=== PATIENT | female | born 1955 | race Caucasian/White ===

== ENCOUNTER 2018-01-25 12:08 | Observation (INO) | payer OTHER ==
[2018-01-25] MEDS ORDERED: TYLENOL 325 MG PO PRN (12:24)
[2018-01-25] MEDS ORDERED: Nicoderm CQ 21 MG TOP SCH (12:30)
--- NOTE | 2018-01-25 12:30 | PCM.HP.ADD ---
Addendum to History & Physical - History & Physical Addendum Addendum to History & Physical: This certifies that the History & Physical in the electronic chart reflects the current health status of the patient. If there are changes in the H&P these changes/exceptions are listed as follows.
--- NOTE | 2018-01-25 13:04 | XRAY ---
Indication: Cough 3 weeks. No fever. Comparison: None PA/lateral chest hyperinflated and clear. Heart and mediastinal structures within normal limits. Bony thorax intact with minimal degenerative changes. Impression: Nonacute hyperinflated chest.
[2018-01-25] MEDS: Sodium Chloride 0.9% 1000 ML 1,000 ML IV SCH (13:21)
[2018-01-25] MEDS: ROCEPHIN 1 Gm-D5w 50 ml Bag** 1 G/50 ML IVPB IV SCH (13:25)
[2018-01-25 13:56] LABS: BASOPHIL % 0.2 % (0.0-0.4); Basophil (Absolute #) 0.02 (0-0.4); Eosinophil % 0.6 % (0.00-5.0); Eosinophil (Absolute #) 0.06 (0-0.5); Granulocyte Absolute (ANC) 6.77 (1.4-6.9); Granulocytes % 63.7 % (36.0-66.0); Hematocrit 46.6 % (35-47); Hemoglobin 16.5 gm/dl (12.0-16.0); Lymphocyte (Absolute #) 2.69 (1.0-4.6); Lymphocytes % 25.3 % (24.0-44.0); Mean Cell Volume 93.8 fl (78-100); Mean Corpuscular Hgb Concent. 35.4 g/dl (32-36); Mean Platelet Volume 11.2 fl (6-9.5); Monocyte (Absolute #) 1.08 (0.0-1.3); Monocytes % 10.2 % (0.0-12.0); Platelet Count 210 K/mm3 (150-450); Red Blood Count 4.97 M/mm3 (4.1-5.4); White Blood Count 10.6 K/mm3 (4.0-10.5)
[2018-01-25 14:01] LABS: Mean Corpuscular Hemoglobin 33.1 pg (26-32)
[2018-01-25 14:28] LABS: ALBUMIN 4.1 g/dL (3.5-5.0); ALKALINE PHOSPHATASE 129 U/L (38-126); ANION GAP 14.4 MEQ/L (5-15); BLOOD UREA NITROGEN 13 mg/dL (7-17); CHLORIDE 106 mmol/L (98-107); Calcium 9.7 mg/dL (8.4-10.2); Carbon Dioxide 25 mmol/L (22-30); Creatinine 1 0.54 mg/dL (0.52-1.04); Glucose 97 mg/dL (74-106); Potassium 3.9 mmol/L (3.5-5.1); SGOT/AST 44 U/L (14-36); SGPT/ALT 39 U/L (0-35); SODIUM 141 mmol/L (137-145); Total Protein 7.4 g/dL (6.3-8.2)
[2018-01-25] MEDS: Zithromax 500 MG/ 250 ML NaCl Premix 500 MG/250 ML IVPB IV SCH (14:45)
[2018-01-25] MEDS ORDERED: Nicoderm CQ 21 MG TOP PRN (14:57)
[2018-01-25] MEDS: DUONEB 0.5-3 MG/3 ml Neb IH SCH ×2 (15:25→19:51)
[2018-01-25] MEDS: Acidophilus TABLET PO SCH (16:04)
[2018-01-25] MEDS: PROPRANOLOL HCL PO SCH (16:04)
[2018-01-25] MEDS: VITA-BEE WITH C PO SCH (16:05)
[2018-01-26] MEDS: Sodium Chloride 0.9% 1000 ML 1,000 ML IV SCH ×3 (00:53→22:25)
[2018-01-26] MEDS: DUONEB 0.5-3 MG/3 ml Neb IH SCH ×4 (01:06→20:45)
--- NOTE | 2018-01-26 09:16 | PCM.NOTE ---
Date and Time: 01/26/18913 Subjective Assessment: doing care - Review of Systems Constitutional: No Fever, No Chills Eyes: No Symptoms Ears, Nose, & Throat: No Symptoms Respiratory: No Cough, No Short Of Breath Cardiac: No Chest Pain, No Edema, No Syncope Abdominal/Gastrointestinal: No Abdominal Pain, No Nausea, No Vomiting, No Diarrhea Genitourinary Symptoms: No Dysuria Musculoskeletal: No Back Pain, No Neck Pain Skin: No Rash Neurological: No Dizziness, No Focal Weakness, No Sensory Changes Psychological: No Symptoms Endocrine: No Symptoms Hematologic/Lymphatic: No Symptoms Immunological/Allergic: No Symptoms Objective Exam General Appearance: no apparent distress, alert Neurologic Exam: alert, oriented x 3, cooperative, normal mood/affect, nml cerebellar function, sensation nml, No motor deficits Skin Exam: normal color, warm, dry Eye Exam: PERRL, EOMI, eyes nml inspection Ears, Nose, Throat Exam: normal ENT inspection, pharynx normal, moist mucous membranes Neck Exam: normal inspection, non-tender, supple, full range of motion Respiratory Exam: normal breath sounds, lungs clear, No respiratory distress Cardiovascular Exam: regular rate/rhythm, normal heart sounds Gastrointestinal/Abdomen Exam: soft, No tenderness, No mass Extremity Exam: normal inspection, normal range of motion Back Exam: normal inspection, normal range of motion, No CVA tenderness, No vertebral tenderness Pelvic Exam: deferred Rectal Exam: deferred OBJECTIVE DATA Vital Signs: Vital Signs - 24 hr Temp Pulse Resp BP Pulse Ox 01/26/18 08:00 18 01/26/18 07:19 98.8 F 68 18 116/58 95 01/26/18 07:00 67 16 97 01/26/18 04:00 99.5 F 69 17 111/58 95 01/26/18 01:00 61 18 96 01/26/18 00:00 99.3 F 71 16 105/58 97 01/25/18 20:00 16 01/25/18 19:52 60 18 95 01/25/18 19:41 98.9 F 64 19 126/67 95 01/25/18 16:00 99.0 F 77 20 114/64 96 01/25/18 13:00 77 16 96 01/25/18 12:36 98.4 F 68 144/67 01/25/18 12:35 98.4 F 68 22 144/67 98 01/25/18 12:33 98.4 F 68 98 01/25/18 12:17 98.4 F 68 98 Pain Assessment - Last Documented Pain Intensity 0 Pain Scale Used 0-10 Pain Scale,FLACC Intake and Output: Intake & Output 01/23/18 01/24/18 01/25/18 01/26/18 11:59 11:59 11:59 11:59 Intake Total 1180 Output Total 1999 Balance -820 Weight 52.9 kg Lab Results: Lab Results-Last 24 Hours 01/25/18 01/25/18 Range/Units 12:24 13:50 WBC 10.6 H (4.0-10.5) K/mm3 RBC 4.97 (4.1-5.4) M/mm3 Hgb 16.5 H (12.0-16.0) gm/dl Hct 46.6 (35-47) % MCV 93.8 (78-100) fl MCH 33.1 H (26-32) pg MCHC 35.4 (32-36) g/dl RDW 13.0 (11.5-14.0) % Plt Count 210 (150-450) K/mm3 MPV 11.2 H (6-9.5) fl Gran % 63.7 (36.0-66.0) % Eos # (Auto) 0.06 (0-0.5) Absolute Lymphs (auto) 2.69 (1.0-4.6) Absolute Monos (auto) 1.08 (0.0-1.3) Lymphocytes % 25.3 (24.0-44.0) % Monocytes % 10.2 (0.0-12.0) % Eosinophils % 0.6 (0.00-5.0) % Basophils % 0.2 (0.0-0.4) % Absolute Granulocytes 6.77 (1.4-6.9) Basophils # 0.02 (0-0.4) Sodium 141 (137-145) mmol/L Potassium 3.9 (3.5-5.1) mmol/L Chloride 106 (98-107) mmol/L Carbon Dioxide 25 (22-30) mmol/L Anion Gap 14.4 (5-15) MEQ/L BUN 13 (7-17) mg/dL Creatinine 0.54 (0.52-1.04) mg/dL Estimated GFR > 60.0 ML/MIN Glucose 97 (74-106) mg/dL Calcium 9.7 (8.4-10.2) mg/dL Total Bilirubin 0.70 (0.2-1.3) mg/dL AST 44 H (14-36) U/L ALT 39 H (0-35) U/L Alkaline Phosphatase 129 H (38-126) U/L Serum Total Protein 7.4 (6.3-8.2) g/dL Albumin 4.1 (3.5-5.0) g/dL Radiology Exams: Radiology Procedures Category Date Time Status CHEST 2 VIEWS (PA AND LAT) Stat Exams 01/25/18 12:52 Completed CHEST W/WO CONTRAST [CT] Urgent Exams 01/26/18 08:41 Ordered
[2018-01-26] MEDS: Acidophilus TABLET PO SCH (09:20)
[2018-01-26] MEDS: ROCEPHIN 1 Gm-D5w 50 ml Bag** 1 G/50 ML IVPB IV SCH (09:22)
[2018-01-26] MEDS: VITA-BEE WITH C PO SCH (09:23)
[2018-01-26] MEDS: PROPRANOLOL HCL PO SCH (09:23)
[2018-01-26] MEDS: Zithromax 500 MG/ 250 ML NaCl Premix 500 MG/250 ML IVPB IV SCH (09:24)
[2018-01-26] MEDS ORDERED: NON-FORMULARY ITEM (L.Acidoph,Paracasei, B.Lactis [Probiotic] 1 EACH) PO SCH (10:00)
[2018-01-26] MEDS ORDERED: NON-FORMULARY ITEM (Vitamin B Complex [Vitamin B Complex] 1 EACH) PO SCH (10:00)
--- NOTE | 2018-01-26 11:50 | XRAY ---
Indication: Cough 3 weeks. History nodules. Multiple contiguous axial images obtained through the chest prior to and following 80 cc Isovue 370 contrast. Comparison: None Lungs demonstrate moderate diffuse pulmonary emphysema. In the posterior left lower lobe, there is focus of interstitial alveolar opacity with patchy consolidations, possible organizing pneumonia. No effusion. Lateral right lower lobe demonstrates 3 sub-5 mm noncalcified nodules. Left lung base also demonstrates 3 tiny subpleural noncalcified nodules, largest 6 mm. Heart is not enlarged. Aorta is mildly arteriosclerotic without aneurysm/dissection. No pathologic mediastinal/hilar lymphadenopathy. Bony thorax intact with superior L1 Schmorl node. Limited upper abdomen demonstrates mild fatty liver and prominent left extrarenal pelvis. Impression: 1. Left lower lobe interstitial alveolar opacity with patchy consolidations, possible organizing pneumonia. Correlate clinically. 2. Bilateral lower lobe indeterminant noncalcified micronodules. Comparison studies would be of benefit if performed elsewhere. If not, recommend follow-up per Fleischner guidelines. 3. Fatty liver. CT DI 7.04
[2018-01-26] MEDS: ENOXAPARIN SODIUM SQ SCH (17:43)
[2018-01-27] MEDS: DUONEB 0.5-3 MG/3 ml Neb IH SCH ×2 (03:01→07:13)
--- NOTE | 2018-01-27 07:47 | CONS ---
CONSULT DATE: 01/26/2018 HISTORY: Christiana Oropeza is a 62 year-old woman with significant smoking history who has been sick for about three weeks. The patient reports that she started having cough productive of thick yellow expectoration with wheezing. She was treated with outpatient antibiotics, steroids and bronchodilators without much clinical improvement. She was finally hospitalized yesterday. A CT chest was obtained today that showed a left lower lobe infiltrate consistent with pneumonia and small lung nodules are seen which will require follow up. The patient denies prior history of pneumonia, deep venous thrombosis, pulmonary embolism, pleural effusion or common pulmonary problems. She was prescribed Dulera inhaler but she has been noncompliant with that. PAST MEDICAL HISTORY: The patient has history of cardiac murmur. She suffers from migraine headache that are well controlled with propranolol and history of recurrent bronchitis. PAST SURGICAL HISTORY: Hysterectomy, appendectomy, cysts removed from right arm and colonoscopy. PERSONAL AND SOCIAL HISTORY: The patient smokes three-fourths of one pack of cigarettes per day. She lives with . MEDICATIONS: Home and current medications are reviewed. ALLERGIES: PENICILLIN CAUSES HIVES. LATEX. PHYSICAL EXAMINATION: This is a middle aged woman who appears comfortable, able to speak without difficulty. Vital signs noted. HEENT: Normocephalic. Oral exam is limited. CVS: Shows first and second heart sounds are normal, regular and rhythmic. RESPIRATORY: Shows diminished breath sounds. ABDOMEN: Soft. No edema is noted. LABORATORY DATA AND TESTS: Sodium 141, potassium 3.9, chloride 106, bicarb 25, glucose 97, BUN 39, creatinine 0.5. White blood cell count 10.6, hemoglobin 16.5, hematocrit 46 [address] PLT 210,000. CT chest reviewed. ASSESSMENT: This is a 62 year old woman admitted with: 1) Left lower lobe community acquired pneumonia. 2) Chronic obstructive pulmonary disease with exacerbation. 3) Nicotine addiction. 4) History of migraine headache. RECOMMENDATIONS: From the pulmonary standpoint, I agree with the current treatment with IV antibiotics, steroids, bronchodilators. Need for permanent smoking cessation was discussed. Will obtain pulmonary function test as an outpatient. Will also obtain alpha-1 antitrypsin and phenotype. Add deep venous thrombosis prophylaxis.
[2018-01-27] MEDS: Sodium Chloride 0.9% 1000 ML 1,000 ML IV SCH (08:14)
[2018-01-27] MEDS: Acidophilus TABLET PO SCH (09:56)
[2018-01-27] MEDS: VITA-BEE WITH C PO SCH (09:56)
[2018-01-27] MEDS: ENOXAPARIN SODIUM SQ SCH (09:56)
[2018-01-27] MEDS: PROPRANOLOL HCL PO SCH (09:57)
[2018-01-27] MEDS: ROCEPHIN 1 Gm-D5w 50 ml Bag** 1 G/50 ML IVPB IV SCH (10:31)
[2018-01-27] MEDS: Zithromax 500 MG/ 250 ML NaCl Premix 500 MG/250 ML IVPB IV SCH (11:39)
--- NOTE | 2018-01-27 12:18 | PCM.DS ---
Discharge Summary Date of Admission: 01/25/18 12:08 Admitting Physician: JENNIFER TAYLOR Consults: Consults on Case 01/26/18 12:27 Consult Pulmonology ROUTINE Primary Care Provider: JENNIFER TAYLOR Allergies Allergies Penicillins Allergy (Severe, Verified 01/25/18 13:00) Hives latex Allergy (Intermediate, Verified 01/25/18 13:00) Rash DAIRY Allergy (Uncoded 01/25/18 13:00) Hospital Summary - Hospital Course Hospital Course: Chief Complaint Diagnosis PNEUMONIA Allergies Allergy/AdvReac Type Severity Reaction Status Date / Time Penicillins Allergy Severe Hives Verified 01/25/18 13:00 latex Allergy Intermediate Rash Verified 01/25/18 13:00 DAIRY Allergy Uncoded 01/25/18 13:00 Vital Signs (Last 24 hours) Temp Pulse Resp BP Pulse Ox 01/27/18 07:51 18 01/27/18 07:20 98.2 F 63 20 134/72 92 L 01/27/18 07:14 60 20 96 01/27/18 04:00 98.8 F 69 18 132/62 95 01/27/18 00:00 99.1 F 66 20 121/71 96 01/26/18 20:45 62 18 96 01/26/18 20:00 99.4 F 62 20 126/61 96 01/26/18 16:00 98.5 F 63 18 112/59 96 01/26/18 12:50 63 18 96 Home Medications Medication Instructions Recorded Confirmed Last Taken Type L.acidoph,Paracasei, B.lactis 1 each PO DAILY 01/25/18 01/25/18 01/24/18 History [Probiotic] Propranolol HCl 60 mg PO DAILY 01/25/18 01/25/18 01/24/18 History Vitamin B Complex 1 each PO DAILY 01/25/18 01/25/18 01/24/18 History Current Medications Generic Name Dose Route Start Last Admin Trade Name Freq PRN Reason Stop Dose Admin Acetaminophen 325 mg 01/25/18 12:24 01/27/18 05:04 Tylenol 325 Mg PO 02/24/18 12:23 325 mg Q4H PRN PRN Administration PAIN, FEVER, HEADACHE Albuterol/Ipratropium 3 ml 01/25/18 13:00 01/27/18 07:13 Duoneb 0.5-3 Mg/3 Ml Neb IH 02/24/18 12:59 3 ml Q6HRT ROLAND Administration Enoxaparin Sodium 40 mg 01/26/18 17:30 01/27/18 09:56 Enoxaparin Sodium SQ 02/25/18 17:29 40 mg DAILY ROLAND Administration Azithromycin 500 mg in 250 mls @ 250 mls/hr 01/25/18 14:00 01/27/18 11:39 Zithromax 500 Mg/ 250 Ml Nacl Premix IV 02/24/18 13:59 250 mls/hr Q24H10 ROLAND Administration Ceftriaxone Sodium/Dextrose 1 g in 50 mls @ 100 mls/hr 01/25/18 12:45 10:31 Rocephin 1 Gm-D5w 50 Ml Bag IV 02/24/18 12:44 100 mls/hr Q24H10 ROLAND Administration Sodium Chloride 1,000 mls @ 100 mls/hr 01/25/18 12:30 01/27/18 08:14 Sodium Chloride 0.9% 1000 Ml IV 02/24/18 12:29 100 mls/hr .Q10H ROLAND Administration Lactobacillus Acidophilus 1 tab 01/25/18 16:00 01/27/18 09:56 Acidophilus Tablet PO 02/24/18 15:59 1 tab DAILY ROLAND Administration Multivitamins 1 tab 01/25/18 16:00 01/27/18 09:56 Daisy-Bee With C PO 02/24/18 15:59 1 tab DAILY ROLAND Administration Nicotine 21 mg 01/25/18 14:57 Nicoderm Cq 21 Mg TOP 02/24/18 14:55 DAILY PRN PRN NICOTINE PATCH Non-Formulary Medication 0 mg 01/25/18 16:00 01/27/18 09:57 Propranolol Hcl [Propranolol Hcl] PO 02/24/18 15:59 60 mg DAILY ROLAND Administration Discontinued Medications Generic Name Dose Route Start Last Admin Trade Name Freq PRN Reason Stop Dose Admin Nicotine 21 mg 01/25/18 12:30 01/25/18 15:00 Nicoderm Cq 21 Mg TOP 02/24/18 12:29 Not Given Q24H ROLAND Intake & Output (Last 24 hours) 01/25/18 01/26/18 01/27/1818 11:59 11:59 11:59 11:59 Intake Total 1540 1580 Output Total 3000 600 Balance -1460 980 Weight 52.9 kg Microbiology Results (Last 24 hours) 01/25/18 22:29 Sputum - Expectorant Gram Stain - Pending 01/25/18 22:29 Sputum - Expectorant Sputum Culture - Pending Orders (Last 24 hours) Category Date Time Status Consult Pulmonology ROUTINE Cons 01/26/18 12:27 Active Alpha 1 Antitrypsin Phenotype Urgent Lab 01/26/18 17:33 Received Enoxaparin Sodium [Enoxaparin Sodium] Med 01/26/18 17:30 Active 40 mg SQ DAILY PFT ONCE RT 01/26/18 17:20 Active Patient Care Notes (Last 24 hours) 01/26/18 17:36 Respiratory Note by Jenny Rajput OUT-PATIENT PFT SCHEDULED FOR WednesdayFebruary @ 10AM. Initialized on 01/26/18 17:36 - END OF NOTE 01/26/18 12:39 Nursing Note by Maryjo Hamilton Dr. notified of pulmonary consult. Initialized on 01/26/18 12:39 - END OF NOTE 01/26/18 12:29 Case Management Note by Shaila Amanda ORDER FOR PULMONOLOGY CONSULT Initialized on 01/26/18 12:29 - END OF NOTE - Vitals & Intake/Output Vital Signs: Vital Signs Temperature 98.2 F 01/27/18 07:20 Pulse Rate 63 01/27/18 07:20 Respiratory Rate 18 01/27/18 07:51 Blood Pressure 134/72 01/27/18 07:20 O2 Sat by Pulse Oximetry 92 L 01/27/18 07:20 Intake & Output: Intake & Output 01/25/18 01/26/18 01/27/18 01/28/18 11:59 11:59 11:59 11:59 Intake Total 1540 1580 Output Total 3000 600 Balance -1460 980 Weight 52.9 kg - Lab Result Diagrams: 01/25/18 13:50 01/25/18 12:24 - Radiology Exams Ordered Rad Exams-Entire Visit: Radiology Procedures Category Date Time Status CHEST 2 VIEWS (PA AND LAT) Stat Exams 01/25/18 12:52 Completed CHEST W/WO CONTRAST [CT] Urgent Exams 01/26/18 08:41 Completed - Procedures and Test Procedures and Tests throughout Hospitalization: Therapy Orders & Screens 01/25/18 12:24 Respiratory Therapy Consult ROUTINE Comment: Reason For Exam: 01/25/18 13:00 Respiratory Nebulizer Q6H Comment: Diagnosis: PNEUMONIA 01/25/18 13:06 Smoking Cessation Education Comment: Diagnosis: PNEUMONIA Smoking Status: Current every day smoker How long have you smoked: 49 YEARS Have you smoked in the past 12 months: Yes Approximately how many cigarettes per day: 15 Do you dip or chew tobacco: No 01/26/18 17:20 PFT ONCE Comment: 2-3WEEKS AFTER DISCHARGE Reason For Exam: SOB Diagnosis: PNEUMONIA Discharge Exam General Appearance: no apparent distress, alert Neurologic Exam: alert, oriented x 3, cooperative, normal mood/affect, nml cerebellar function, sensation nml, No motor deficits Skin Exam: normal color, warm, dry Eye Exam: PERRL, EOMI, eyes nml inspection Ears, Nose, Throat Exam: normal ENT inspection, pharynx normal, moist mucous membranes Neck Exam: normal inspection, non-tender, supple, full range of motion Respiratory Exam: normal breath sounds, lungs clear, No respiratory distress Cardiovascular Exam: regular rate/rhythm, normal heart sounds Gastrointestinal/Abdomen Exam: soft, No tenderness, No mass Extremity Exam: normal inspection, normal range of motion Back Exam: normal inspection, normal range of motion, No CVA tenderness, No vertebral tenderness Pelvic Exam: deferred Rectal Exam: deferred Final Diagnosis/Problem List - Final Discharge Diagnosis/Problem (1) Pneumonia Current Visit: Yes Status: Acute Onset Date: ~01/25/18 Assessment & Plan: Chief Complaint Diagnosis PNEUMONIA Allergies Allergy/AdvReac Type Severity Reaction Status Date / Time Penicillins Allergy Severe Hives Verified 01/25/18 13:00 latex Allergy Intermediate Rash Verified 01/25/18 13:00 DAIRY Allergy Uncoded 01/25/18 13:00 Vital Signs (Last 24 hours) Temp Pulse Resp BP Pulse Ox 01/27/18 07:51 18 01/27/18 07:20 98.2 F 63 20 134/72 92 L 01/27/18 07:14 60 20 96 01/27/18 04:00 98.8 F 69 18 132/62 95 01/27/18 00:00 99.1 F 66 20 121/71 96 01/26/18 20:45 62 18 96 01/26/18 20:00 99.4 F 62 20 126/61 96 01/26/18 16:00 98.5 F 63 18 112/59 96 01/26/18 12:50 63 18 96 Home Medications Medication Instructions Recorded Confirmed Last Taken Type L.acidoph,Paracasei, B.lactis 1 each PO DAILY 01/25/18 01/25/18 01/24/18 History [Probiotic] Propranolol HCl 60 mg PO DAILY 01/25/18 01/25/18 01/24/18 History Vitamin B Complex 1 each PO DAILY 01/25/18 01/25/18 01/24/18 History Current Medications Generic Name Dose Route Start Last Admin Trade Name Freq PRN Reason Stop Dose Admin Acetaminophen 325 mg 01/25/18 12:24 01/27/18 05:04 Tylenol 325 Mg PO 02/24/18 12:23 325 mg Q4H PRN PRN Administration PAIN, FEVER, HEADACHE Albuterol/Ipratropium 3 ml 01/25/18 13:00 01/27/18 07:13 Duoneb 0.5-3 Mg/3 Ml Neb IH 02/24/18 12:59 3 ml Q6HRT ROLAND Administration Enoxaparin Sodium 40 mg 01/26/18 17:30 01/27/18 09:56 Enoxaparin Sodium SQ 02/25/18 17:29 40 mg DAILY ROLAND Administration Azithromycin 500 mg in 250 mls @ 250 mls/hr 01/25/18 14:00 01/27/18 11:39 Zithromax 500 Mg/ 250 Ml Nacl Premix IV 02/24/18 13:59 250 mls/hr Q24H10 ROLAND Administration Ceftriaxone Sodium/Dextrose 1 g in 50 mls @ 100 mls/hr 01/25/18 12:45 10:31 Rocephin 1 Gm-D5w 50 Ml Bag IV 02/24/18 12:44 100 mls/hr Q24H10 ROLAND Administration Sodium Chloride 1,000 mls @ 100 mls/hr 01/25/18 12:30 01/27/18 08:14 Sodium Chloride 0.9% 1000 Ml IV 02/24/18 12:29 100 mls/hr .Q10H ROLAND Administration Lactobacillus Acidophilus 1 tab 01/25/18 16:00 01/27/18 09:56 Acidophilus Tablet PO 02/24/18 15:59 1 tab DAILY ROLAND Administration Multivitamins 1 tab 01/25/18 16:00 01/27/18 09:56 Daisy-Bee With C PO 02/24/18 15:59 1 tab DAILY ROLAND Administration Nicotine 21 mg 01/25/18 14:57 Nicoderm Cq 21 Mg TOP 02/24/18 14:55 DAILY PRN PRN NICOTINE PATCH Non-Formulary Medication 0 mg 01/25/18 16:00 01/27/18 09:57 Propranolol Hcl [Propranolol Hcl] PO 02/24/18 15:59 60 mg DAILY ROLAND Administration Discontinued Medications Generic Name Dose Route Start Last Admin Trade Name Freq PRN Reason Stop Dose Admin Nicotine 21 mg 01/25/18 12:30 01/25/18 15:00 Nicoderm Cq 21 Mg TOP 02/24/18 12:29 Not Given Q24H ROLAND Intake & Output (Last 24 hours) 01/25/18 01/26/18 01/27/18 01/28/18 11:59 11:59 11:59 11:59 Intake Total 1540 1580 Output Total 3000 600 Balance -1460 980 Weight 52.9 kg Microbiology Results (Last 24 hours) 01/25/18 22:29 Sputum - Expectorant Gram Stain - Pending 01/25/18 22:29 Sputum - Expectorant Sputum Culture - Pending Orders (Last 24 hours) Category Date Time Status Consult Pulmonology ROUTINE Cons 01/26/18 12:27 Active Alpha 1 Antitrypsin Phenotype Urgent Lab 01/26/18 17:33 Received Enoxaparin Sodium [Enoxaparin Sodium] Med 01/26/18 17:30 Active 40 mg SQ DAILY PFT ONCE RT 01/26/18 17:20 Active Patient Care Notes (Last 24 hours) 01/26/18 17:36 Respiratory Note by Jneny Rjaput OUT-PATIENT PFT SCHEDULED FOR WednesdayFebruary @ 10AM. Initialized on 01/26/18 17:36 - END OF NOTE 01/26/18 12:39 Nursing Note by Maryjo Hamilton Dr. notified of pulmonary consult. Initialized on 01/26/18 12:39 - END OF NOTE 01/26/18 12:29 Case Management Note by Shaila Amanda ORDER FOR PULMONOLOGY CONSULT Initialized on 01/26/18 12:29 - END OF NOTE Patient is doing better, will d/c home with nicotine patch, abx - Discharge Discharge Date: 01/27/18 Disposition: Home, Self-Care Condition: Stable Prescriptions: New Nicotine 21 mg [Nicoderm CQ 21 MG] 21 mg TOP DAILY PRN PRN 14 Days #14 patch PRN Reason: NICOTINE PATCH Levofloxacin [Levaquin] 500 mg PO DAILY #7 tablet Continue Vitamin B Complex 1 each PO DAILY L.acidoph,Paracasei, B.lactis [Probiotic] 1 each PO DAILY Propranolol HCl 60 mg PO DAILY Additional Instructions: Pulmonary function test scheduled for Wednesday - February 14, 2018 at 10:00 AM in Respiratory Department. Follow up with: JOE PHILLIPS [ACTIVE STAFF] - 02/17/18 9:45 am ([facility]) JENNIFER TAYLOR MD [Primary Care Provider] - 1 Week
[2018-01-27 12:22] VITALS: BP 123/62; PULSE 52; O2SAT 97
[2018-02-01 03:16] LABS: Alpha 1 Antitryp.Phenotype M1M1; Alpha 1 Antitrypsin Result 192 mg/dL (90-200)
== END 2018-01-27 13:00 | disposition home or self-care (01) ==
LOC: MED SURG 12:08
PROVIDERS: ADMIT General Practice; ATTEND General Practice
DX: J15.8 Pneumonia due to other specified bacteria (principal); G43.119 Migraine with aura, intractable, without status migrainosus; J01.90 Acute sinusitis, unspecified; Z00.01 Encounter for general adult medical examination with abnormal findings; J20.9 Acute bronchitis, unspecified; R53.83 Other fatigue; R10.33 Periumbilical pain; J98.4 Other disorders of lung; K63.4 Enteroptosis; R10.30 Lower abdominal pain, unspecified; E73.9 Lactose intolerance, unspecified
CPT/HCPCS: 36415; 71046; 71270; 80053; 82103; 82104; 85025; 87070; 94150; 94640; 94760; G0378; J0456; J0696; J1650; A9270-GY

== ENCOUNTER 2024-10-18 11:36 | Day surgery (SDC) | payer MEDICARE ==
[2024-10-18] MEDS ORDERED: LIDOCAINE HCL 2% 100 MG/5 ML IJ ONE (11:37)
[2024-10-18] MEDS ORDERED: Depo-Medrol 40 MG/ML IM ONE (11:37)
[2024-10-18] MEDS ORDERED: propofoL IV ONE (13:41)
--- NOTE | 2024-10-18 15:05 | XRAY ---
Indication: Bilateral L1-L3 MBB. Intraoperative fluoroscopy provided for 8 seconds. Single digital spot image submitted for interpretation demonstrates posterior needle tips projecting over expected left and right L1-L3 nerve roots. Correlate with intraoperative findings/report.
--- NOTE | 2024-10-18 15:35 | XRAY ---
8 seconds of fluoroscopy was used in surgery for a bilateral L1-L3 MBB.
== END 2024-10-18 14:12 | disposition home or self-care (01) ==
LOC: SDC-PAIN 11:36
PROVIDERS: ATTEND Psychiatry & Neurology Pain Medicine
DX: M47.816 Spondylosis without myelopathy or radiculopathy, lumbar region (principal)
CPT/HCPCS: 64493; 64494; 72020; 77002; J2704

== ENCOUNTER 2024-11-15 12:34 | Day surgery (SDC) | payer MEDICARE ==
[2024-11-15] MEDS ORDERED: BUPIVACAINE 0.5% VIAL IJ ONE (12:35)
[2024-11-15] MEDS ORDERED: Depo-Medrol 40 MG/ML IM ONE (12:35)
[2024-11-15] MEDS ORDERED: propofoL IV ONE (14:02)
--- NOTE | 2024-11-15 15:24 | XRAY ---
8 seconds of fluoroscopy was used in surgery for a bilateral L1-L3 MBB.
== END 2024-11-15 14:35 | disposition home or self-care (01) ==
LOC: SDC-PAIN 12:34
PROVIDERS: ATTEND Psychiatry & Neurology Pain Medicine
DX: M47.816 Spondylosis without myelopathy or radiculopathy, lumbar region (principal)
CPT/HCPCS: 64493; 64494; 72020; J2704

== ENCOUNTER 2024-11-29 08:34 | Day surgery (SDC) | payer MEDICARE ==
[~2024-11-29 08:34] MED LIST: Lactated Ringers 500 ML IV ONE
[2024-11-29] MEDS ORDERED: Depo-Medrol 40 MG/ML IM ONE (08:35)
[2024-11-29] MEDS ORDERED: LIDOCAINE HCL 1% AMPUL 5 ML IJ ONE (08:35)
[2024-11-29] MEDS ORDERED: BUPIVACAINE 0.5% VIAL IJ ONE (08:35)
[2024-11-29] MEDS ORDERED: propofoL IV ONE (10:30)
--- NOTE | 2024-11-29 13:13 | XRAY ---
Indication: Right L1-L3 RFA. Intraoperative fluoroscopy provided for 34 seconds. 5 digital spot image submitted for interpretation demonstrates posterior needle tips projecting over expected right L1-L3 nerve roots. Correlate with intraoperative findings/report.
--- NOTE | 2024-11-29 13:15 | XRAY ---
34 seconds of fluoroscopy was used in surgery for a right L1-L3 RFA.
== END 2024-11-29 11:15 | disposition home or self-care (01) ==
LOC: SDC-PAIN 08:34
PROVIDERS: ATTEND Psychiatry & Neurology Pain Medicine
DX: M47.817 Spondylosis without myelopathy or radiculopathy, lumbosacral region (principal)
CPT/HCPCS: 64635; 64636; 72100; J2704

== ENCOUNTER 2024-11-30 09:38 | Day surgery (SDC) | payer MEDICARE ==
[2024-11-30] MEDS ORDERED: BUPIVACAINE 0.5% VIAL IJ ONE (09:39)
[2024-11-30] MEDS ORDERED: Depo-Medrol 40 MG/ML IM ONE (09:39)
[2024-11-30] MEDS ORDERED: LIDOCAINE HCL 1% AMPUL 5 ML IJ ONE (09:39)
[2024-11-30] MEDS ORDERED: Lactated Ringers 500 ML IV ONE (09:56)
[2024-11-30] MEDS ORDERED: propofoL IV ONE (11:26)
--- NOTE | 2024-11-30 19:25 | XRAY ---
21 seconds of fluoroscopy was used in surgery for a left L1-L3 RFA.
--- NOTE | 2024-11-30 19:35 | XRAY ---
Indication: Left L1-L3 RFA. Intraoperative fluoroscopy provided for 21 seconds. 3 digital spot image submitted for interpretation demonstrates posterior needle tips projecting over expected right L1-L3 nerve roots. Correlate with intraoperative findings/report.
== END 2024-11-30 12:03 | disposition home or self-care (01) ==
LOC: SDC-PAIN 09:38
PROVIDERS: ATTEND Psychiatry & Neurology Pain Medicine
DX: M47.817 Spondylosis without myelopathy or radiculopathy, lumbosacral region (principal)
CPT/HCPCS: 64635; 64636; 72100; J2704